=== PATIENT | male | born 1960 | race Caucasian/White ===

== ENCOUNTER 2020-09-14 08:07 | Outpatient (CLI) | payer OTHER ==
--- NOTE | 2020-09-14 10:05 | MRI Report ---
PROCEDURE: Cervical Spine W/O INDICATIONS: BRACHIAL PLEXUS DISORDERS TECHNIQUE: Noncontrast sagittal T1 spin echo and T2 fast spin echo, sagittal STIR, foraminal oblique sagittal T2 fast spin echo, and axial gradient echo or T2 fast spin echo through the cervical spine. COMPARISON: None. FINDINGS: Image quality: Excellent. Alignment and Curvature: There is loss of normal cervical lordosis. There is mild, grade 1 retrolist hesis of C3 on C4 and C5 on C6. Bone Marrow: Marrow demonstrates normal overall signal. Minimal reactive signal within the endplate s adjacent to the C3-C4, C4-C5, C5-C6, and C6-C7 intervertebral discs. Spinal Cord: Visualized spinal cord has normal size and signal. No cerebellar tonsillar herniation. Paraspinous Soft Tissues: No paravertebral masses. Prevertebral soft tissues are normal in thicknes s. C2-C3: Mild disc desiccation. Mild facet and uncovertebral hypertrophy. No significant canal stenosi s. Mild bilateral foraminal stenosis. C3-C4: Moderate disc desiccation. Mild diffuse disc bulge with superimposed small central protrusio n. Mild facet and uncovertebral hypertrophy bilaterally. Moderate to severe canal stenosis. Minimal a nterior cord flattening. Mild bilateral foraminal stenosis. C4-C5: Mild disc height loss. Mild disc desiccation. Mild diffuse disc bulge. Mild facet and uncover tebral hypertrophy bilaterally. Moderate canal stenosis. Mild bilateral foraminal stenosis. C5-C6: Moderate disc height loss and desiccation. Mild diffuse disc bulge with superimposed broad-ba sed left paracentral and posterolateral protrusion/osteophyte. Mild facet and uncovertebral hypertrop hy bilaterally. Severe canal stenosis. Mild cord flattening. Moderate right and severe left foraminal stenosis. Left C6 nerve root compression. C6-C7: Moderate disc height loss and desiccation. Mild diffuse disc bulge/osteophyte with superimpos ed broad-based left posterolateral protrusion. Moderate facet and uncovertebral hypertrophy bilateral ly. Mild canal stenosis. Severe left greater than right foraminal stenosis with bilateral C7 nerve ro ot compression. C7-T1: Mild disc height loss and desiccation. Mild facet and uncovertebral hypertrophy bilaterally. No significant canal, nor foraminal stenosis. IMPRESSION: 1. Multilevel degenerative disc and facet disease, as well as uncovertebral hypertrophy. 2. Multilevel canal stenoses, worst at C3-C4 and C5-C6, where there is associated cord flattening as described above. 3. Multilevel foraminal stenoses, worst at C5-C6 and C6-C7 where there is associated intraforaminal n erve root compression. Reviewed by: Karlo Moore MD on 09/14/2020 10:04 AM PST Approved by: Karlo Moore MD on 09/14/2020 10:04 AM PST Station ID: [id number]
== END 2020-09-14 08:08 | disposition home or self-care (01) ==
LOC: DI 08:07
PROVIDERS: ATTEND Family Medicine
DX: M50.31 Other cervical disc degeneration, high cervical region (principal); M48.02 Spinal stenosis, cervical region
CPT/HCPCS: 72141

== ENCOUNTER 2020-09-25 14:46 | Outpatient (CLI) | payer OTHER ==
[2020-09-25] MEDS ORDERED: GADOBUTROL 10 MMOL/10 ML VIAL ONE (15:11)
[2020-09-25] MEDS ORDERED: GADOBUTROL 10 MMOL/10 ML VIAL IVP ONE (16:23)
--- NOTE | 2020-09-27 11:02 | MRI Report ---
PROCEDURE: Brachial Plexus W/WO INDICATIONS: BRACHIAL PLEXUS DISORDERS CONTRAST: IV CONTRAST: Gadavist ml: 9 TECHNIQUE: Noncontrast axial, coronal, and sagittal T1 spin echo and STIR through the affected brachial plexus r egion. Additional axial T1 spin echo and coronal T2 fast spin echo acquired through both brachial pl exuses with a large [id number]. Optional contrast may be given, followed by axial, coronal, and s agittal T1 spin echo with fat saturation through the affected side. COMPARISON: None. FINDINGS: Image quality: Suboptimal failure fat suppression artifact seen bilaterally image , probably r elated to air within lung apices. Brachial plexus: No meningoceles identified. The signal intensity and appearance of the brachial ple xus appears grossly normal. The subclavian artery appears grossly patent and the adjacent cords of th e brachial plexus are unremarkable. No discrete mass lesion is seen. No suspicious enhancement. Soft tissues: No supraclavicular adenopathy by size criteria. Superior pleural surfaces are normal in thickness. Jugular veins and carotid arteries appear normal in size. Bones: Cervical spondylosis which would better assessed on dedicated cervical spine MRI as clinically necessary. IMPRESSION: Overall, no discrete mass. Unremarkable signal intensity and appearance of the brachial plexus. Cervical spondylosis which would be better assessed on dedicated cervical spine protocol MRI. Reviewed by: Vic Noonan MD on 09/27/2020 11:01 AM PST Approved by: Vic Noonan MD on 09/27/2020 11:01 AM PST Station ID: [id number]
== END 2020-09-25 14:47 | disposition home or self-care (01) ==
LOC: DI 14:46
PROVIDERS: ATTEND Family Medicine
DX: G54.0 Brachial plexus disorders (principal)
CPT/HCPCS: 71552; A9585

== ENCOUNTER 2023-03-30 08:23 | Outpatient (CLI) | payer OTHER ==
--- NOTE | 2023-03-30 10:59 | MRI Report ---
PROCEDURE: SHOULDER WO - RT INDICATIONS: SHOUDLER PAIN TECHNIQUE: Noncontrast oblique coronal T2 fast spin echo with fat saturation, oblique sagittal T1 spin echo and T2 fast spin echo with fat saturation, axial T1 spin echo and T2 fast spin echo with fat saturation a nd 3-D gradient echo through the shoulder. COMPARISON: None. FINDINGS: Image quality: Excellent. Rotator cuff: There is moderate to severe supraspinatus and infraspinatus tendinosis. Superimposed lo w-grade partial bursal sided tearing is seen at the distal supraspinatus footprint. There is focal lo w-grade partial intrasubstance tearing of the infraspinatus tendon at the critical zone. The teres mi nor tendon is intact. There is focal high-grade partial intrasubstance tearing of the subscapularis t endon at the distal insertion measuring 2 mm in width superimposed on moderate to severe tendinosis. No significant rotator cuff muscle atrophy is seen. Bones and bursae: No acute trabecular bone injury or fracture. Traction cystic changes are seen in th e posterosuperior humeral head and greater tuberosity near the rotator cuff tendon insertions. No foc al glenohumeral cartilage defect. Moderate degenerative changes are seen in the acromioclavicular bryan nt with subchondral edema and marginal osteophyte formation. There is a small amount of subacromial/s ubdeltoid bursal fluid. A physiologic amount of glenohumeral joint fluid is present. Capsule and soft tissues: There is mild diffuse labral degeneration. The proximal biceps long head te ndon demonstrates moderate tendinosis and low-grade partial intrasubstance tearing. There is normal f at signal in the rotator interval. The glenohumeral ligaments are intact. IMPRESSION: 1.Diffuse moderate to severe rotator cuff tendinosis involving the supraspinatus, infraspinatus, subs capularis tendons. Focal high-grade partial intrasubstance tearing is seen at the distal subscapulari s tendon measuring 2 mm in width. Small foci of low-grade partial tearing are also seen in the distal supraspinatus and infraspinatus tendons. 2.Moderate biceps long head tendinosis with suspected low-grade partial intrasubstance tearing. 3.Mild presacral degeneration. 4.Moderate acromioclavicular joint osteoarthrosis. 5.Small subacromial/subdeltoid bursal effusion or bursitis. Reviewed by: Obdulio Real MD on 03/30/2023 10:58 AM PDT Approved by: Obdulio Real MD on 03/30/2023 10:58 AM PDT Station ID: [id number]
== END 2023-03-30 08:24 | disposition home or self-care (01) ==
LOC: DI 08:23
PROVIDERS: ATTEND Physician Assistant
DX: M75.111 Incomplete rotator cuff tear or rupture of right shoulder, not specified as traumatic (principal); M75.81 Other shoulder lesions, right shoulder; M19.011 Primary osteoarthritis, right shoulder; R93.6 Abnormal findings on diagnostic imaging of limbs